=== PATIENT | male | born 1950 | race Caucasian/White ===

== ENCOUNTER 2018-05-31 13:30 | Emergency (ER) | payer OTHER ==
[~2018-05-31] VITALS: Ht 172.7 cm; Wt 97.1 kg
[2018-05-31 14:01] VITALS: BP 127/75; Ht 172.7 cm; Wt 97.1 kg
== END 2018-05-31 15:47 | disposition home or self-care (01) ==
LOC: ED 13:30
DX: S61.411A Laceration without foreign body of right hand, initial encounter (principal); S50.01XA Contusion of right elbow, initial encounter; S40.011A Contusion of right shoulder, initial encounter; W26.8XXA Contact with other sharp object(s), not elsewhere classified, initial encounter; Y93.89 Activity, other specified; Y92.89 Other specified places as the place of occurrence of the external cause; Y99.8 Other external cause status
CPT/HCPCS: 90715; J2001